=== PATIENT | female | born 1945 | race Caucasian/White ===

== ENCOUNTER 2021-07-31 07:47 | Outpatient (CLI) | payer MEDICARE | END 2021-07-31 07:48 | disposition home or self-care (01) | LOC: BICULT 07:47 | PROVIDERS: ATTEND Physician Assistant Medical | DX: B18.2 Chronic viral hepatitis C (principal); K80.20 Calculus of gallbladder without cholecystitis without obstruction | CPT/HCPCS: 76705 ==